=== PATIENT | male | born 2000 | race Hispanic/Latino ===

== ENCOUNTER 2018-06-13 17:41 | Emergency (ER) | payer SELFPAY ==
[2018-06-13 18:02] LABS: #Basophils 0.1 thou/uL (0.0-0.2); #Eosinphils 0.1 thou/uL (0.0-0.7); #Monocytes 0.8 thou/uL (0.11-0.59); %Eosinophils 0.8 % (0.0-10.0); %Lymphocytes 36.5 % (28.0-48.0); %Monocytes 7.2 % (0.0-4.0); %Neutrophils 54.6 % (31.0-61.0); Mean Corpuscular HGB CONC 33.8 g/dL (32.0-36.0); Mean Corpuscular Hemoglobin 28.4 pg (25.0-35.0); Mean Platelet Volume 7.2 fL (7.4-10.4); Platelet Count 298 thou/uL (130-400); RBC Distribution Width 11.5 % (11.5-14.5); Red Blood Cell (RBC) Count 5.29 mill/uL (4.00-5.20)
[2018-06-13] MEDS ORDERED: Lorazepam 2 MG/ML VIAL ONE (18:06)
[2018-06-13 18:19] LABS: ALT (SGPT) 27 U/L (8-55); AST (SGOT) 22 U/L (10-45); Albumin 4.9 g/dL (3.5-5.0); Alkaline Phosphatase 101 U/L (Less than 750); Anion Gap 18 mmol/L (10-20); BUN (Urea Nitrogen) 11 mg/dL (8.4-21.0); Bilirubin, Total 0.3 mg/dL (0.2-1.2); Calc. Creatinine Clearance 0 mL/min (70-130); Calcium 10.1 mg/dL (7.8-10.44); Carbon Dioxide 23 mmol/L (22-29); Chloride 104 mmol/L (98-107); Estimated GFR-MDRD Greater than 90; Globulin 3.3 g/dL (2.4-3.5); Glucose 97 mg/dL (70-105); Potassium 3.6 mmol/L (3.5-5.1); Protein, Total 8.2 g/dL (6.0-8.3); Sodium 141 mmol/L (136-145)
--- NOTE | 2018-06-13 20:47 | CT ---
CT OF THE BRAIN WITHOUT CONTRAST: 06/13/18 The ventricles are normal in size with no shift. No intracranial bleeding, or extra-axial hematoma wa s seen. There is no sign of mass, stroke or edema. The skull appears intact and the visible paranasal sinuses are clear, as are the mastoid air cells. IMPRESSION: No acute intracranial finding. POS: HOME
--- NOTE | 2018-06-13 21:10 | CT ---
CT OF THE CERVICAL SPINE 06/13/[address] of the cervical spine was performed following trauma. Axial slices are acquired, then coron al and sagittal reconstructions were done. No fracture, dislocation, or acute bony change was seen. The disc spaces appear normal and the C1 to dens distance is normal. The soft tissues are normal in thickness. No specific disc abnormality or ar ea of foraminal or central canal stenosis was seen. The lung apices appear normal. IMPRESSION: No acute finding. POS: HOME
== END 2018-06-13 19:14 | disposition home or self-care (01) ==
LOC: BURERS 17:41
DX: R56.9 Unspecified convulsions (principal); F17.210 Nicotine dependence, cigarettes, uncomplicated
CPT/HCPCS: 70450; 72125; 80053; 85025; 94760; 96374; J2060